=== PATIENT | male | born 1945 | race African-American/Black ===

== ENCOUNTER 2023-08-17 12:58 | Outpatient (CLI) | payer MEDICARE, BC | END 2023-08-17 23:59 | disposition home health service (06) | LOC: WOU 12:58 | PROVIDERS: ATTEND Podiatrist Foot & Ankle Surgery | DX: I70.245 Atherosclerosis of native arteries of left leg with ulceration of other part of foot (principal); L97.528 Non-pressure chronic ulcer of other part of left foot with other specified severity | CPT/HCPCS: G0463 ==